=== PATIENT | male | born 1955 | race American Indian/Alaskan Native ===

== ENCOUNTER 2017-09-20 12:37 | Outpatient (CLI) | payer OTHER ==
--- NOTE | 2017-09-20 22:17 | Ultrasound Report ---
FINAL REPORT EXAM: US EXTREMITY NONVASCULAR RT HISTORY: Popliteal pain after fall TECHNIQUE: real-time sonography was performed of the right popliteal area and images are submitted for interpretation. PRIORS: None. 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 IMPRESSION: Gilbert's cyst
--- NOTE | 2017-09-21 07:36 | XRay Report ---
FINAL REPORT EXAM: XR SPINE CERVICAL 4-5V HISTORY: LEG PAIN TECHNIQUE: Five views of the cervical spine were submitted. FINDINGS: There is a mild dextroscoliosis along with generalized osteoporosis. There is severe narrowing of the C3-C4, C5-C6 and C6-C7 disc with moderate narrowing of the C4-C5 disc. The oblique views reveal varying degrees of neural foraminal impingement all levels by spurring. The prevertebral soft tissues and C1-C2 articulation appear intact. IMPRESSION: Dextroscoliosis with multilevel disc degeneration as described.
== END 2017-09-20 12:38 | disposition home or self-care (01) ==
LOC: XRAY 12:37
PROVIDERS: ATTEND Internal Medicine
DX: M71.21 Synovial cyst of popliteal space [Baker], right knee (principal); M50.31 Other cervical disc degeneration, high cervical region; M50.321 Other cervical disc degeneration at C4-C5 level; M50.322 Other cervical disc degeneration at C5-C6 level; M50.323 Other cervical disc degeneration at C6-C7 level; R10.0 Acute abdomen
CPT/HCPCS: 72050

== ENCOUNTER 2017-10-17 11:00 | Outpatient (CLI) | payer OTHER | END 2017-10-17 11:01 | disposition home or self-care (01) | LOC: SLR 11:00 | PROVIDERS: ATTEND Otolaryngology | DX: G47.33 Obstructive sleep apnea (adult) (pediatric) (principal) | CPT/HCPCS: G0399 ==

== ENCOUNTER 2017-10-25 14:56 | Outpatient (CLI) | payer OTHER ==
--- NOTE | 2017-10-26 02:08 | Magnetic Resonance Report ---
FINAL REPORT EXAM: MR CERVICAL SPINE WO CON HISTORY: Cervical disc disorder with left radiculopathy. TECHNIQUE: MRI evaluation was performed of the cervical spine to include sagittal T1 and axial and sagittal T2 sequences. PRIORS: Cervical spine radiographs dated 09/20/2017. FINDINGS: MRI evaluation of the cervical spine reveals no evidence of acute fracture or subluxation. There is straightening of the usual cervical lordosis. Vertebral body heights are preserved. Multilevel degenerative changes most prominent from C3-C4 through C5-C6 detail below. Mild fibrovascular endplate changes are present at C3-C4 and C5-C6 (Modic type I). No findings to suggest marrow infiltrative process. The posterior fossa appears normal. There is no abnormal signal intensity within the cervical spinal cord. Level by level analysis as follows: C1-C2: Unremarkable. C2-C3: No significant spinal canal or neural foraminal narrowing. C3-C4: Disc osteophyte complex resulting in moderate narrowing of the spinal canal with flattening of the ventral spinal cord, moderate to severe (left greater than right) neural foraminal narrowing. C4-C5: Disc osteophyte complex resulting in mild spinal canal and moderate right greater than left neural foraminal narrowing. C5-C6: Disc osteophyte complex resulting in mild spinal canal and moderate (left greater than right) neural foraminal narrowing. C6-C7: Disc osteophyte complex resulting in mild spinal canal and mild to moderate left greater than right neural foraminal narrowing. C7-T1: No significant spinal canal or neural foraminal narrowing. IMPRESSION: No acute osseous abnormality. Multilevel cervical spondylosis which are most significant from the C3-C4 through C5-C6 levels. At C3-C4 a disc osteophyte complex results in moderate narrowing of the spinal cord, flattening of the ventral spinal cord and moderate to severe (left greater than right) neural foraminal narrowing. At C4-C5 there is mild spinal canal and moderate right greater than left foraminal narrowing. At C5-C6 there is mild spinal canal and moderate left greater than right neural foraminal narrowing.
== END 2017-10-25 14:57 | disposition home or self-care (01) ==
LOC: MRI 14:56
PROVIDERS: ATTEND Internal Medicine
DX: M47.892 Other spondylosis, cervical region (principal); M50.10 Cervical disc disorder with radiculopathy, unspecified cervical region; M25.78 Osteophyte, vertebrae
CPT/HCPCS: 72141

== ENCOUNTER 2017-11-13 11:00 | Outpatient (CLI) | payer OTHER | END 2017-11-13 11:01 | disposition home or self-care (01) | LOC: SLR 11:00 | PROVIDERS: ATTEND Otolaryngology | DX: G47.33 Obstructive sleep apnea (adult) (pediatric) (principal) | CPT/HCPCS: 95811 ==